=== PATIENT | female | born 1955 | race American Indian/Alaskan Native ===

== ENCOUNTER 2016-10-30 15:36 | Emergency (ER) | payer OTHER ==
[2016-10-30] MEDS ORDERED: MOTRIN PO ONE (21:45)
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
[2016-10-31 00:30] VITALS: BP 130/82
== END 2016-10-30 23:20 | disposition home or self-care (01) ==
LOC: ED 15:36
DX: S13.4XXA Sprain of ligaments of cervical spine, initial encounter (principal); S16.1XXA Strain of muscle, fascia and tendon at neck level, initial encounter; S39.012A Strain of muscle, fascia and tendon of lower back, initial encounter; I10 Essential (primary) hypertension; E11.9 Type 2 diabetes mellitus without complications; M19.90 Unspecified osteoarthritis, unspecified site; M10.9 Gout, unspecified; Z88.8 Allergy status to other drugs, medicaments and biological substances; Z88.5 Allergy status to narcotic agent; V43.52XA Car driver injured in collision with other type car in traffic accident, initial encounter; Y93.89 Activity, other specified; Y99.8 Other external cause status; Y92.488 Other paved roadways as the place of occurrence of the external cause
CPT/HCPCS: 70450; 72125; 72131

== ENCOUNTER 2017-01-26 05:42 | Emergency (ER) | payer OTHER ==
[2017-01-26 08:06] VITALS: BP 142/75
[2017-01-26] MEDS ORDERED: ULTRAM PO ONE (08:12)
--- NOTE | 2017-01-26 09:29 | XRay Report ---
BILATERAL KNEES, 3 VIEWS History: Bilateral knee pain and weakness. Findings: Normal bone mineralization. Mild to moderate osteoarthritic changes are identified in both knees. The medial compartments are most affected. No evidence for fracture, bone lesion or large osteochondral defect. Moderate right knee effusion is noted on the lateral image. Impression: Osteoarthritic changes. Moderate right knee effusion.
--- NOTE | 2017-01-26 11:38 | Emergency Department Report ---
ED General Adult HPI - General Chief complaint: Extremity Problem,Nontraumatic Stated complaint: KNEE PAIN Source: patient Mode of arrival: Ambulatory Limitations: No Limitations - History of Present Illness Initial comments: Patient is a 61-year-old female past medical history of osteoarthritis who presents with bilateral knee pain. She states that her bilateral knee pain has been going on for the last year. However during the last week her right knee has been giving out for the last couple days. She states that her knee pain is 7 out of 10 walking and bending her knee in a certain position makes the pain worse rest makes it better. It is an achy pain doesn't radiate. Patient denies any other symptoms. Severity scale (0 -10): 9 - Related Data Home Medications Medication Instructions Recorded Confirmed Last Taken Carvedilol [Coreg] 12.5 mg PO BID 03/31/15 06/10/15 03/31/15 08:00 Losartan/Hydrochlorothiazide 1 tab PO QDAY 03/31/15 06/10/15 03/31/15 08:00 [Hyzaar 100-25 TAB] metFORMIN [Glucophage] 500 mg PO BID 03/31/15 06/10/15 Unknown Previous Rx's Medication Instructions Recorded Last Taken Type Meclizine [Antivert] 25 mg PO Q8H PRN #15 tablet 06/12/15 Unknown Rx Naproxen [Naprosyn] 375 mg PO BID PRN #12 tablet 12/01/15 Unknown Rx traMADol [Ultram] 50 mg PO Q6HR PRN #10 tablet 12/01/15 Unknown Rx Cyclobenzaprine [Flexeril] 10 mg PO TID PRN #15 tablet 10/30/16 Unknown Rx Ibuprofen [Motrin 600 MG tab] 600 mg PO Q8H PRN #15 tablet 10/30/16 Unknown Rx Allergies Allergy/AdvReac Type Severity Reaction Status Date / Time cefadroxil hydrate Allergy Hives Verified 03/31/15 09:12 [From Amy] morphine AdvReac Mild ELEVATED HR Verified 03/31/15 09:12 ED Review of Systems ROS: Stated complaint: KNEE PAIN Other details as noted in HPI Constitutional: denies: chills, fever Eyes: denies: eye pain, eye discharge, vision change ENT: denies: ear pain, throat pain Respiratory: denies: cough, shortness of breath, wheezing Cardiovascular: denies: chest pain, palpitations Endocrine: no symptoms reported Gastrointestinal: denies: abdominal pain, nausea, diarrhea Genitourinary: denies: urgency, dysuria, discharge Musculoskeletal: other (knee pain). denies: back pain, joint swelling, arthralgia Skin: denies: rash, lesions Neurological: denies: headache, weakness, paresthesias Psychiatric: denies: anxiety, depression Hematological/Lymphatic: denies: easy bleeding, easy bruising ED Past Medical Hx - Past Medical History Previous Medical History?: Yes Hx Hypertension: Yes Hx Diabetes: Yes Hx Arthritis: Yes Hx COPD: Yes Additional medical history: GOUT. OBESITY. VERTIGO. Fibromyalagia. lumbar vertebra dz - Surgical History Past Surgical History?: Yes Hx Cholecystectomy: Yes Hx Appendectomy: Yes Additional Surgical History: hysterectomy, sinus, ankle tonsils - Social History Smoking Status: Never Smoker Substance Use Type: None - Medications Home Medications: Home Medications Medication Instructions Recorded Confirmed Last Taken Type Carvedilol [Coreg] 12.5 mg PO BID 03/31/15 06/10/15 03/31/15 08:00 History Losartan/Hydrochlorothiazide 1 tab PO QDAY 03/31/15 06/10/15 03/31/15 08:00 History [Hyzaar 100-25 TAB] metFORMIN [Glucophage] 500 mg PO BID 03/31/15 06/10/15 Unknown History Meclizine [Antivert] 25 mg PO Q8H PRN #15 tablet 06/12/15 Unknown Rx Naproxen [Naprosyn] 375 mg PO BID PRN #12 tablet 12/01/15 Unknown Rx traMADol [Ultram] 50 mg PO Q6HR PRN #10 tablet 12/01/15 Unknown Rx Cyclobenzaprine [Flexeril] 10 mg PO TID PRN #15 tablet 10/30/16 Unknown Rx Ibuprofen [Motrin 600 MG tab] 600 mg PO Q8H PRN #15 tablet 10/30/16 Unknown Rx ED Physical Exam - General Limitations: No Limitations General appearance: alert, in no apparent distress - Head Head exam: Present: atraumatic, normocephalic - Eye Eye exam: Present: normal appearance - ENT ENT exam: Present: mucous membranes moist - Neck Neck exam: Present: normal inspection - Respiratory Respiratory exam: Present: normal lung sounds bilaterally. Absent: respiratory distress - Cardiovascular Cardiovascular Exam: Present: regular rate, normal rhythm. Absent: systolic murmur, diastolic murmur, rubs, gallop - GI/Abdominal GI/Abdominal exam: Present: soft, normal bowel sounds - Extremities Exam Extremities exam: Present: other (is light swelling and right knee tender to palpation patient is neurovascularly intact swelling 2+ DP pulses bilaterally) - Back Exam Back exam: Present: normal inspection - Neurological Exam Neurological exam: Present: alert, oriented X3 - Psychiatric Psychiatric exam: Present: normal affect, normal mood - Skin Skin exam: Present: warm, dry, intact, normal color. Absent: rash ED Course Vital Signs 01/26/17 01/26/17 01/26/17 05:46 08:05 08:06 Temperature 97.8 F 98.9 F Pulse Rate 80 69 Respiratory 20 15 15 Rate Blood Pressure 127/80 Blood Pressure 142/75 [Left] O2 Sat by Pulse 99 99 99 Oximetry - Reevaluation(s) Reevaluation #1: 01/26/17 12:07 Patient has a brace on her right knee she states that she is feeling better discussed the patient initially is follow-up with her orthopedist to get surgery on her knee as was scheduled one year ago. Patient states that she has pain medication at home. Patient is feeling better after oral tramadol. ED Medical Decision Making - Radiology Data Radiology results: report reviewed, image reviewed X-ray right knee: No acute osseous injury, osteoarthritis, slight right knee swelling X-ray left knee: No acute osseous injury osteoarthritis, - Medical Decision Making Chief medical diagnosis: Osteoarthritis Differential diagnosis: Knee fracture, pseudogout I will give patient oral tramadol and bilateral knee x-rays. Patient is feeling better will apply in the right vertebral arteries and we'll send patient home patient given return precautions to come back to the ED additional verbal discharge instructions were given. Critical care attestation.: If time is entered above; I have spent that time in minutes in the direct care of this critically ill patient, excluding procedure time. ED Disposition Clinical Impression: Knee pain, bilateral Qualifiers: Chronicity: chronic Qualified Code(s): M25.561 - Pain in right knee; M25.562 - Pain in left knee; G89.29 - Other chronic pain Disposition: - TO HOME OR SELFCARE Is pt being admited?: No Does the pt Need Aspirin: No Condition: Stable Instructions: Arthralgia (ED) Referrals: PRIMARY CARE, [Primary Care Provider] - 3-5 Days FLOR WEBSTER MD [Staff Physician] - 3-5 Days Time of Disposition: 11:39
== END 2017-01-26 11:52 | disposition home or self-care (01) ==
LOC: ED 05:42
DX: M25.561 Pain in right knee (principal); M25.562 Pain in left knee; I10 Essential (primary) hypertension; E11.9 Type 2 diabetes mellitus without complications; J44.9 Chronic obstructive pulmonary disease, unspecified

== ENCOUNTER 2017-02-25 10:13 | Emergency (ER) | payer OTHER ==
[2017-02-25 10:51] VITALS: BP 128/75
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
[2017-02-25 12:31] LABS: Basophils % (Auto) 0.6 % (0.0-1.8); Eosinophils % (Auto) 4.5 % (0.0-4.3); Hematocrit 40.8 % (30.3-42.9); Hemoglobin 13.2 gm/dl (10.1-14.3); Mean Corpuscular HGB Conc 32 % (30-34); Mean Corpuscular Hemoglobin 29 pg (28-32); Mean Corpuscular Volume 90 fl (79-97); Platelet Count 238 K/mm3 (140-440); Red Blood Count 4.55 M/mm3 (3.65-5.03); Red Cell Distribution Width 15.6 % (13.2-15.2); White Blood Count 5.9 K/mm3 (4.5-11.0)
[2017-02-25 12:33] LABS: Anion Gap 17 mmol/L; BUN/Creatinine Ratio 27.14; Blood Urea Nitrogen 19 mg/dL (7-17); Calcium 9.7 mg/dL (8.4-10.2); Carbon Dioxide 28 mmol/L (22-30); Chloride 98.3 mmol/L (98-107); Creatine Kinase 97 units/L (30-135); Glucose 205 mg/dL (65-100); Potassium 3.9 mmol/L (3.6-5.0); Sodium 139 mmol/L (137-145)
--- NOTE | 2017-02-25 12:57 | Cat Scan Report ---
CT OF THE ABDOMEN AND PELVIS WITHOUT CONTRAST HISTORY: Right flank pain. TECHNIQUE: Helical CT without contrast. Sagittal and coronal reformatted images. FINDINGS: New The kidneys are normal size, contour and position. A solitary 7 mm calyceal stone is noted in the inferior right kidney. No ureteral stones or left nephrolithiasis. Parapelvic cysts are noted in the inferior left renal sinus. The gallbladder and uterus have been surgically removed. The appendix is not confidently identified suggesting appendectomy. Within the limits of a noncontrast exam, the remaining abdominal and pelvic viscera are within normal limits. The liver, biliary system, pancreas, spleen, adrenal glands and bladder are unremarkable. The bowel loops are normal caliber and wall thickness. The aorta is normal caliber. No ascites, bulky adenopathy or inflammatory changes. The lung bases are clear. Normal heart size. No suspicious bony lesion. IMPRESSION: 7 mm right renal stone, nonobstructing.
[2017-02-25 13:43] LABS: Bacteria,Urine 1+ /HPF (Negative); Bilirubin,Urine NEG (Negative); Blood,Urine SM (Negative); Ketones,Urine NEG (Negative); Leukocyte Esterase,Urine TR (Negative); Mucus,Urine 2+ /HPF; Nitrite,Urine NEG (Negative); Urobilinogen,Urine < 2.0 mg/dL (<2.0)
[2017-02-25] MEDS ORDERED: PERCOCET 5/325 PO ONE (13:45)
[2017-02-25] MEDS ORDERED: ZOFRAN ODT PO ONE (13:46)
--- NOTE | 2017-02-25 16:59 | Emergency Department Report ---
ED General Adult HPI - General Chief complaint: Abdominal Pain Stated complaint: RIGHT SIDE PAIN Time Seen by Provider: 02/25/17 16:17 Source: patient Mode of arrival: Ambulatory Limitations: No Limitations - History of Present Illness Initial comments: Patient is a 61-year-old female past medical history of hypertension and diabetes who presents with right flank pain. Patient states that supposedly gone on for the last 2 days. Her pain is 9 out of 10. Patient's pain is intermittent she states that nothing makes it better or worse it is an achy colicky type pain that radiates to her groin. She denies having any nausea or vomiting. She states that she's had kidney stones in the past and it feels like she has another one. Severity scale (0 -10): 6 - Related Data Home Medications Medication Instructions Recorded Confirmed Last Taken Carvedilol [Coreg] 12.5 mg PO BID 03/31/15 06/10/15 03/31/15 08:00 Losartan/Hydrochlorothiazide 1 tab PO QDAY 03/31/15 06/10/15 03/31/15 08:00 [Hyzaar 100-25 TAB] metFORMIN [Glucophage] 500 mg PO BID 03/31/15 06/10/15 Unknown Previous Rx's Medication Instructions Recorded Last Taken Type Meclizine [Antivert] 25 mg PO Q8H PRN #15 tablet 06/12/15 Unknown Rx Naproxen [Naprosyn] 375 mg PO BID PRN #12 tablet 12/01/15 Unknown Rx traMADol [Ultram] 50 mg PO Q6HR PRN #10 tablet 12/01/15 Unknown Rx Cyclobenzaprine [Flexeril] 10 mg PO TID PRN #15 tablet 10/30/16 Unknown Rx Ibuprofen [Motrin 600 MG tab] 600 mg PO Q8H PRN #15 tablet 10/30/16 Unknown Rx HYDROcodone/APAP 7.5-325 [[place] 1 each PO Q6HR PRN #15 tablet 02/25/17 Unknown Rx 7.5/325] Ondansetron [Zofran Odt] 4 mg PO Q8HR PRN #15 tab.rapdis 02/25/17 Unknown Rx Allergies Allergy/AdvReac Type Severity Reaction Status Date / Time cefadroxil hydrate Allergy Hives Verified 03/31/15 09:12 [From Genet] morphine AdvReac Mild ELEVATED HR Verified 03/31/15 09:12 ED Review of Systems ROS: Stated complaint: RIGHT SIDE PAIN Other details as noted in HPI Constitutional: denies: chills, fever Eyes: denies: eye pain, eye discharge, vision change ENT: denies: ear pain, throat pain Respiratory: denies: cough, shortness of breath, wheezing Cardiovascular: denies: chest pain, palpitations Endocrine: no symptoms reported Gastrointestinal: abdominal pain, other (flank pain). denies: nausea, diarrhea Genitourinary: denies: urgency, dysuria, discharge Musculoskeletal: denies: back pain, joint swelling, arthralgia Skin: denies: rash, lesions Neurological: denies: headache, weakness, paresthesias Psychiatric: denies: anxiety, depression Hematological/Lymphatic: denies: easy bleeding, easy bruising ED Past Medical Hx - Past Medical History Hx Hypertension: Yes Hx Diabetes: Yes Hx Arthritis: Yes Hx COPD: Yes Additional medical history: GOUT. OBESITY. VERTIGO. Fibromyalagia. lumbar vertebra dz - Surgical History Hx Cholecystectomy: Yes Hx Appendectomy: Yes Additional Surgical History: hysterectomy, sinus, ankle tonsils - Social History Smoking Status: Never Smoker Substance Use Type: None - Medications Home Medications: Home Medications Medication Instructions Recorded Confirmed Last Taken Type Carvedilol [Coreg] 12.5 mg PO BID 03/31/15 06/10/15 03/31/15 08:00 History Losartan/Hydrochlorothiazide 1 tab PO QDAY 03/31/15 06/10/15 03/31/15 08:00 History [Hyzaar 100-25 TAB] metFORMIN [Glucophage] 500 mg PO BID 03/31/15 06/10/15 Unknown History Meclizine [Antivert] 25 mg PO Q8H PRN #15 tablet 06/12/15 Unknown Rx Naproxen [Naprosyn] 375 mg PO BID PRN #12 tablet 12/01/15 Unknown Rx traMADol [Ultram] 50 mg PO Q6HR PRN #10 tablet 12/01/15 Unknown Rx Cyclobenzaprine [Flexeril] 10 mg PO TID PRN #15 tablet 10/30/16 Unknown Rx Ibuprofen [Motrin 600 MG tab] 600 mg PO Q8H PRN #15 tablet 10/30/16 Unknown Rx HYDROcodone/APAP 7.5-325 [[place] 1 each PO Q6HR PRN #15 tablet 02/25/17 Unknown Rx 7.5/325] Ondansetron [Zofran Odt] 4 mg PO Q8HR PRN #15 tab.rapdis 02/25/17 Unknown Rx ED Physical Exam - General Limitations: No Limitations General appearance: alert, in no apparent distress - Head Head exam: Present: atraumatic, normocephalic - Eye Eye exam: Present: normal appearance - ENT ENT exam: Present: mucous membranes moist - Neck Neck exam: Present: normal inspection - Respiratory Respiratory exam: Present: normal lung sounds bilaterally. Absent: respiratory distress - Cardiovascular Cardiovascular Exam: Present: regular rate, normal rhythm. Absent: systolic murmur, diastolic murmur, rubs, gallop - GI/Abdominal GI/Abdominal exam: Present: soft, normal bowel sounds, other (mild right CVA tenderness) - Extremities Exam Extremities exam: Present: normal inspection - Back Exam Back exam: Present: normal inspection - Neurological Exam Neurological exam: Present: alert, oriented X3 - Psychiatric Psychiatric exam: Present: normal affect, normal mood - Skin Skin exam: Present: warm, dry, intact, normal color. Absent: rash ED Course Vital Signs 02/25/17 02/25/17 10:45 18:21 Temperature 98.7 F Pulse Rate 93 H Respiratory 20 18 Rate Blood Pressure 128/75 O2 Sat by Pulse 96 99 Oximetry ED Medical Decision Making - Lab Data Result diagrams: 02/25/17 11:55 02/25/17 11:55 Lab Results 02/25/17 02/25/17 02/25/17 Range/Units 11:55 11:55 11:55 WBC 5.9 (4.5-11.0) K/mm3 RBC 4.55 (3.65-5.03) M/mm3 Hgb 13.2 (10.1-14.3) gm/dl Hct 40.8 (30.3-42.9) % MCV 90 (79-97) fl MCH 29 (28-32) pg MCHC 32 (30-34) % RDW 15.6 H (13.2-15.2) % Plt Count 238 (140-440) K/mm3 Lymph % (Auto) 32.1 (13.4-35.0) % [place] % (Auto) 10.0 H (0.0-7.3) % Eos % (Auto) 4.5 H (0.0-4.3) % Baso % (Auto) 0.6 (0.0-1.8) % Lymph # 1.9 (1.2-5.4) K/mm3 [place] # 0.6 (0.0-0.8) K/mm3 Eos # 0.3 (0.0-0.4) K/mm3 Baso # 0.0 (0.0-0.1) K/mm3 Seg Neutrophils % 52.8 (40.0-70.0) % Seg Neutrophils # 3.1 (1.8-7.7) K/mm3 Sodium 139 (137-145) mmol/L Potassium 3.9 (3.6-5.0) mmol/L Chloride 98.3 (98-107) mmol/L Carbon Dioxide 28 (22-30) mmol/L Anion Gap 17 mmol/L BUN 19 H (7-17) mg/dL Creatinine 0.7 (0.7-1.2) mg/dL Estimated GFR > 60 ml/min BUN/Creatinine Ratio 27.14 % Glucose 205 H (65-100) mg/dL Calcium 9.7 (8.4-10.2) mg/dL Total Creatine Kinase 97 97 (30-135) units/L Urine Color (Yellow) Urine Turbidity (Clear) Urine pH (5.0-7.0) Ur Specific [place] (1.003-1.030) Urine Protein (Negative) mg/dL Urine Glucose (UA) (Negative) mg/dL Urine Ketones (Negative) mg/dL Urine Blood (Negative) Urine Nitrite (Negative) Urine Bilirubin (Negative) Urine Urobilinogen (<2.0) mg/dL Ur Leukocyte Esterase (Negative) Urine WBC (Auto) (0.0-6.0) /HPF Urine RBC (Auto) (0.0-6.0) /HPF U Epithel Cells (Auto) (0-13.0) /HPF Urine Bacteria (Auto) (Negative) /HPF Urine Mucus /HPF 02/25/17 Range/Units 13:19 WBC (4.5-11.0) K/mm3 RBC (3.65-5.03) M/mm3 Hgb (10.1-14.3) gm/dl Hct (30.3-42.9) % MCV (79-97) fl MCH (28-32) pg MCHC (30-34) % RDW (13.2-15.2) % Plt Count (140-440) K/mm3 Lymph % (Auto) (13.4-35.0) % [place] % (Auto) (0.0-7.3) % Eos % (Auto) (0.0-4.3) % Baso % (Auto) (0.0-1.8) % Lymph # (1.2-5.4) K/mm3 [place] # (0.0-0.8) K/mm3 Eos # (0.0-0.4) K/mm3 Baso # (0.0-0.1) K/mm3 Seg Neutrophils % (40.0-70.0) % Seg Neutrophils # (1.8-7.7) K/mm3 Sodium (137-145) mmol/L Potassium (3.6-5.0) mmol/L Chloride (98-107) mmol/L Carbon Dioxide (22-30) mmol/L Anion Gap mmol/L BUN (7-17) mg/dL Creatinine (0.7-1.2) mg/dL Estimated GFR ml/min BUN/Creatinine Ratio % Glucose (65-100) mg/dL Calcium (8.4-10.2) mg/dL Total Creatine Kinase (30-135) units/L Urine Color Yellow (Yellow) Urine Turbidity Clear (Clear) Urine pH 5.0 (5.0-7.0) Ur Specific [place] 1.029 (1.003-1.030) Urine Protein 30 mg/dl (Negative) mg/dL Urine Glucose (UA) 150 (Negative) mg/dL Urine Ketones Neg (Negative) mg/dL Urine Blood Sm (Negative) Urine Nitrite Neg (Negative) Urine Bilirubin Neg (Negative) Urine Urobilinogen < 2.0 (<2.0) mg/dL Ur Leukocyte Esterase Tr (Negative) Urine WBC (Auto) 10.0 H (0.0-6.0) /HPF Urine RBC (Auto) 20.0 (0.0-6.0) /HPF U Epithel Cells (Auto) 19.0 H (0-13.0) /HPF Urine Bacteria (Auto) 1+ (Negative) /HPF Urine Mucus 2+ /HPF - Radiology Data Radiology results: report reviewed, image reviewed CT abdomen: 7 mm non-obstructing stone in the right kidney - Medical Decision Making Chief medical diagnosis: Nephrolithiasis Differential diagnosis: Urinary tract infection, pyelonephritis, hypokalemia CBC, CMP, urinalysis, oral pain medication and CT w/o contrast Patient's laboratory findings are unremarkable patient has a 7 mm nonobstructing stone right kidney. These typically do not cause pain but if it passes I will send patient home with oral [place]iance and antiemetic pain medication. Also give the patient appointment to follow up with Dr. Zhu the urologist. Discussed plan with patient and she agrees with plan. Critical care attestation.: If time is entered above; I have spent that time in minutes in the direct care of this critically ill patient, excluding procedure time. ED Disposition Clinical Impression: Renal colic on right side, Nephrolithiasis Disposition: TO HOME OR SELFCARE Is pt being admited?: No Does the pt Need Aspirin: No Condition: Stable Instructions: Renal Colic (ED) Prescriptions: HYDROcodone/APAP 7.5-325 [[place] 7.5/325] 1 each PO Q6HR PRN #15 tablet PRN Reason: Pain Ondansetron [Zofran Odt] 4 mg PO Q8HR PRN #15 tab.rapdis PRN Reason: Nausea And Vomiting Referrals: JAMSHID ZHU MD [Staff Physician] - 3-5 Days
[2017-02-25] MEDS ORDERED: MOTRIN PO ONE (17:21)
== END 2017-02-25 18:32 | disposition home or self-care (01) ==
LOC: ED 10:13
DX: N20.0 Calculus of kidney (principal); E11.9 Type 2 diabetes mellitus without complications; J44.9 Chronic obstructive pulmonary disease, unspecified; M19.90 Unspecified osteoarthritis, unspecified site; E66.9 Obesity, unspecified; Z88.8 Allergy status to other drugs, medicaments and biological substances
CPT/HCPCS: 36415; 74176; 80048; 81001; 82550; 85025; 87086; Q0162

== ENCOUNTER 2017-10-10 11:54 | Outpatient (CLI) | payer OTHER ==
--- NOTE | 2017-10-10 14:28 | Mammography Report ---
BILATERAL MAMMOGRAM: FINDINGS: The breasts are almost entirely fat (<25% glandular). No mass, distortion, suspicious calcification, or skin change is seen. No significant change when compared to a prior exam in February 2014. CAD was utilized. IMPRESSION: Negative mammogram. There is no mammographic evidence of malignancy. RECOMMENDATION: Follow-up per ACS guidelines. BI-RADS CATEGORY: 1 = Negative ACR BI-RADS MAMMOGRAPHIC CODES: 0 = Needs additional imaging evaluation; 1 = Negative; 2 = Benign; 3 = Probably benign; 4 = Suspicious; 5 = Malignant; 6 = Known biopsy-proven malignancy COMMENT: 1. Dense breast tissue, i.e., adenosis, fibrocystic changes, etc., may obscure an underlying neoplasm. 2. Approximately 10% of cancers are not detected with mammography. 3. A negative mammography report should not delay biopsy if a clinically suspicious mass is present. COMMENT: Patient follow-up letters are generated in [employer].
== END 2017-10-10 11:55 | disposition home or self-care (01) ==
LOC: SPVWC 11:54
PROVIDERS: ATTEND Internal Medicine
DX: Z12.31 Encounter for screening mammogram for malignant neoplasm of breast (principal)
CPT/HCPCS: 77067

== ENCOUNTER 2018-09-08 09:51 | Emergency (ER) | payer SELFPAY ==
[2018-09-08] MEDS ORDERED: DUONEB *Not for PRN Use IH ONE (12:27)
[2018-09-08] MEDS ORDERED: ROBITUSSIN AC PO ONE (13:00)
[2018-09-08 13:08] LABS: Basophils % (Auto) 0.6 % (0.0-1.8); Eosinophils # (Auto) 0.2 K/mm3 (0.0-0.4); Eosinophils % (Auto) 2.2 % (0.0-4.3); Hemoglobin 13.8 gm/dl (10.1-14.3); Lymphocytes # (Auto) 2.3 K/mm3 (1.2-5.4); Lymphocytes % (Auto) 32.4 % (13.4-35.0); Mean Corpuscular HGB Conc 34 % (30-34); Mean Corpuscular Volume 87 fl (79-97); Monocytes # (Auto) 0.7 K/mm3 (0.0-0.8); Monocytes % (Auto) 9.9 % (0.0-7.3); Platelet Count 286 K/mm3 (140-440); Red Cell Distribution Width 14.5 % (13.2-15.2)
[2018-09-08 13:26] LABS: BUN/Creatinine Ratio 20; Blood Urea Nitrogen 16 mg/dL (7-17); Calcium 9.4 mg/dL (8.4-10.2); Hemolysis Index 10
--- NOTE | 2018-09-08 13:43 | Emergency Department Report ---
ED General Adult HPI - General Chief complaint: Chest Pain Stated complaint: CHEST PATTEN/COUGH Time Seen by Provider: 09/08/18 11:50 Source: patient Mode of arrival: Ambulatory Limitations: No Limitations - History of Present Illness Initial comments: Patient presents to the emergency department with chief complaint of a cough that is productive in nature for the last 3 weeks. Patient recently finished a course of antibiotics for sinus infection. Patient endorses chest pain with cough without cough she has no chest pain. Patient denies fever, nausea, vomiting, diarrhea. -: Gradual Severity scale (0 -10): 5 Quality: aching Improves with: none Worsens with: none Associated Symptoms: denies other symptoms Treatments Prior to Arrival: none - Related Data Home Medications Medication Instructions Recorded Confirmed Last Taken Carvedilol [Coreg] 12.5 mg PO BID 03/31/15 06/10/15 03/31/15 08:00 Losartan/Hydrochlorothiazide 1 tab PO QDAY 03/31/15 06/10/15 03/31/15 08:00 [Hyzaar 100-25 TAB] metFORMIN [Glucophage] 500 mg PO BID 03/31/15 06/10/15 Unknown Previous Rx's Medication Instructions Recorded Last Taken Type Ibuprofen [Motrin] 600 mg PO Q8H PRN #20 tablet 04/20/18 Unknown Rx Cetirizine HCl [Zyrtec] 10 mg PO DAILY #30 tablet 05/18/18 Unknown Rx Fluticasone [Flonase] 1 spray NS QDAY #1 bottle 05/18/18 Unknown Rx predniSONE [Prednisone] 50 mg PO DAILY #4 tablet 05/18/18 Unknown Rx ALBUTEROL Inhaler (OR & NICU) 2 puff IH Q4HR PRN #1 inhalation 09/08/18 Unknown Rx [ProAir HFA Inhaler] Azithromycin [Zithromax Z-NEL] 250 mg PO DAILY #6 tablet 09/08/18 Unknown Rx Benzonatate [Tessalon Perles] 100 mg PO Q8HR PRN #20 capsule 09/08/18 Unknown Rx Ibuprofen [Motrin] 800 mg PO Q8HR PRN #30 tablet 09/08/18 Unknown Rx guaiFENesin/CODEINE [Robitussin AC] 5 ml PO Q12HR PRN #180 oral.liqd 09/08/18 Unknown Rx predniSONE [Deltasone] 20 mg PO DAILY #15 tablet 09/08/18 Unknown Rx Allergies Allergy/AdvReac Type Severity Reaction Status Date / Time cefadroxil hydrate Allergy Hives Verified 03/31/15 09:12 [From Genet] morphine AdvReac Mild ELEVATED HR Verified 03/31/15 09:12 ED Review of Systems ROS: Stated complaint: CHEST PATTEN/COUGH Other details as noted in HPI Constitutional: denies: chills, fever Eyes: denies: eye pain, eye discharge, vision change ENT: denies: ear pain, throat pain Respiratory: cough. denies: shortness of breath, wheezing Cardiovascular: denies: chest pain, palpitations Endocrine: no symptoms reported Gastrointestinal: denies: abdominal pain, nausea, diarrhea Genitourinary: denies: urgency, dysuria, discharge Musculoskeletal: denies: back pain, joint swelling, arthralgia Skin: denies: rash, lesions Neurological: denies: headache, weakness, paresthesias Psychiatric: denies: anxiety, depression Hematological/Lymphatic: denies: easy bleeding, easy bruising ED Past Medical Hx - Past Medical History Previous Medical History?: Yes Hx Hypertension: Yes Hx Diabetes: Yes Hx Arthritis: Yes Hx COPD: Yes Additional medical history: GOUT. OBESITY. VERTIGO. Fibromyalagia. lumbar vertebra dz - Surgical History Past Surgical History?: Yes Hx Cholecystectomy: Yes Hx Appendectomy: Yes Additional Surgical History: hysterectomy, sinus, ankle tonsils - Social History Smoking Status: Never Smoker Substance Use Type: None - Medications Home Medications: Home Medications Medication Instructions Recorded Confirmed Last Taken Type Carvedilol [Coreg] 12.5 mg PO BID 03/31/15 06/10/15 03/31/15 08:00 History Losartan/Hydrochlorothiazide 1 tab PO QDAY 03/31/15 06/10/15 03/31/15 08:00 History [Hyzaar 100-25 TAB] metFORMIN [Glucophage] 500 mg PO BID 03/31/15 06/10/15 Unknown History Ibuprofen [Motrin] 600 mg PO Q8H PRN #20 tablet 04/20/18 Unknown Rx Cetirizine HCl [Zyrtec] 10 mg PO DAILY #30 tablet 05/18/18 Unknown Rx Fluticasone [Flonase] 1 spray NS QDAY #1 bottle 05/18/18 Unknown Rx predniSONE [Prednisone] 50 mg PO DAILY #4 tablet 05/18/18 Unknown Rx ALBUTEROL Inhaler (OR & NICU) 2 puff IH Q4HR PRN #1 inhalation 09/08/18 Unknown Rx [ProAir HFA Inhaler] Azithromycin [Zithromax Z-NEL] 250 mg PO DAILY #6 tablet 09/08/18 Unknown Rx Benzonatate [Tessalon Perles] 100 mg PO Q8HR PRN #20 capsule 09/08/18 Unknown Rx Ibuprofen [Motrin] 800 mg PO Q8HR PRN #30 tablet 09/08/18 Unknown Rx guaiFENesin/CODEINE [Robitussin AC] 5 ml PO Q12HR PRN #180 oral.liqd 09/08/18 Unknown Rx predniSONE [Deltasone] 20 mg PO DAILY #15 tablet 09/08/18 Unknown Rx ED Physical Exam - General Limitations: No Limitations General appearance: alert, in no apparent distress - Head Head exam: Present: atraumatic, normocephalic - Eye Eye exam: Present: normal appearance, PERRL, EOMI - ENT ENT exam: Present: mucous membranes moist - Neck Neck exam: Present: normal inspection - Respiratory Respiratory exam: Present: normal lung sounds bilaterally. Absent: respiratory distress, wheezes - Cardiovascular Cardiovascular Exam: Present: regular rate, normal rhythm. Absent: systolic murmur, diastolic murmur, rubs, gallop - GI/Abdominal GI/Abdominal exam: Present: soft, normal bowel sounds. Absent: distended, t enderness - Extremities Exam Extremities exam: Present: normal inspection - Back Exam Back exam: Present: normal inspection - Neurological Exam Neurological exam: Present: alert, oriented X3, CN II-XII intact. Absent: motor sensory deficit - Psychiatric Psychiatric exam: Present: normal affect, normal mood - Skin Skin exam: Present: warm, dry, intact, normal color. Absent: rash ED Course Vital Signs 09/08/18 09/08/18 10:08 13:55 Temperature 97.9 F 97.8 F Pulse Rate 85 74 Respiratory 16 18 Rate Blood Pressure 142/77 Blood Pressure 126/81 [Left] O2 Sat by Pulse 95 97 Oximetry ED Medical Decision Making - Lab Data Result diagrams: 09/08/18 12:54 09/08/18 12:54 Lab Results 09/08/18 09/08/18 Range/Units 12:54 12:54 WBC 7.1 (4.5-11.0) K/mm3 RBC 4.70 (3.65-5.03) M/mm3 Hgb 13.8 (10.1-14.3) gm/dl Hct 41.0 (30.3-42.9) % MCV 87 (79-97) fl MCH 29 (28-32) pg MCHC 34 (30-34) % RDW 14.5 (13.2-15.2) % Plt Count 286 (140-440) K/mm3 Lymph % (Auto) 32.4 (13.4-35.0) % [place] % (Auto) 9.9 H (0.0-7.3) % Eos % (Auto) 2.2 (0.0-4.3) % Baso % (Auto) 0.6 (0.0-1.8) % Lymph # 2.3 (1.2-5.4) K/mm3 [place] # 0.7 (0.0-0.8) K/mm3 Eos # 0.2 (0.0-0.4) K/mm3 Baso # 0.0 (0.0-0.1) K/mm3 Seg Neutrophils % 54.9 (40.0-70.0) % Seg Neutrophils # 3.9 (1.8-7.7) K/mm3 Sodium 138 (137-145) mmol/L Potassium 4.6 (3.6-5.0) mmol/L Chloride 99.0 (98-107) mmol/L Carbon Dioxide 27 (22-30) mmol/L Anion Gap 17 mmol/L BUN 16 (7-17) mg/dL Creatinine 0.8 (0.7-1.2) mg/dL Estimated GFR > 60 ml/min BUN/Creatinine Ratio 20 % Glucose 241 H (65-100) mg/dL Calcium 9.4 (8.4-10.2) mg/dL - Radiology Data Radiology results: report reviewed - Medical Decision Making Discussed results with patient Critical care attestation.: If time is entered above; I have spent that time in minutes in the direct care of this critically ill patient, excluding procedure time. ED Disposition Clinical Impression: Bronchitis Disposition: DC-01 TO HOME OR SELFCARE Is pt being admited?: No Does the pt Need Aspirin: No Condition: Stable Instructions: Acute Bronchitis (ED) Additional Instructions: return if worse Referrals: JORGE L ESTEVEZ MD [Primary Care Provider] - 3-5 Days Time of Disposition: 14:52
[2018-09-08 13:57] VITALS: BP 126/81
--- NOTE | 2018-09-08 15:35 | XRay Report ---
PROCEDURE: XR CHEST 1V AP TECHNIQUE: Chest radiograph, AP portable upright view. HISTORY: cough COMPARISONS: Chest x-ray May 18, 2018. FINDINGS: Cardiac silhouette is within normal limits. Aortic calcifications. There is no effusion. There is no pneumothorax. There is no consolidation. Bilateral perihilar peribr onchial thickening. There are no suspicious osseous lesions. IMPRESSION: * Pulmonary findings may represent pneumonia (possibly viral), bronchitis, or reactive airway diseas e. This document is electronically signed by Nate Berger MD., September 08 2018 03:33:58 PM ET
== END 2018-09-08 15:06 | disposition home or self-care (01) ==
LOC: ED 09:51
DX: J40 Bronchitis, not specified as acute or chronic (principal); I10 Essential (primary) hypertension; E11.9 Type 2 diabetes mellitus without complications; M19.90 Unspecified osteoarthritis, unspecified site; J44.9 Chronic obstructive pulmonary disease, unspecified; Z90.49 Acquired absence of other specified parts of digestive tract
CPT/HCPCS: 36415; 71045; 80048; 85025; 93005; 93010